=== PATIENT | male | born 1990 | race Caucasian/White ===

== ENCOUNTER → 2024-04-06 13:51 | Outpatient (CLI) | payer OTHER, SELFPAY ==
--- NOTE | 2024-04-06 13:56 | DI.ECHO.S_ITS ---
[facility] : : [address] : : [place] : : [id number] : : Phone: [phone] Echocardiogram Report + + :Name: SUMIT SHARMA Study Date: 04/06/2024 Height: 71 in : :Hospital ReadingLocation: Weight: 255 lb : : Gender: Male BSA: 2.3 m2 : :: 1990 Age: 33 yrs BP: 134/83 mmHg: :Reason For Study: PAROXYSMAL ATRIAL FIBRILLATION : :Ordering Physician: GINA, : :[place] Performed By: Eugenia Barry : :Referring: [place] CHE : + + Interpretation Summary 1) Normal left ventricular thickness, size, wall motion, and systolic function (EF 55-60%). 2) Normal right ventricular size and function. 3) No significant valvular abnormalities. 4) No prior Echo available for comparison. Procedure: A two-dimensional transthoracic echocardiogram with color flow and Doppler was performed. The study quality was technically adequate. There is no prior echocardiogram noted for this patient. The patient was in sinus rhythm with heart rates between 63-85 bpm during the exam. Left Ventricle: The left ventricle is normal in size and wall thickness. The ejection fraction is estimated to be 55-60%. Left ventricular systolic function appears normal without focal wall motion abnormalities. Diastolic parameters suggest probable normal left ventricular diastolic function and normal filling pressures. Right Ventricle: The right ventricle is grossly normal size. The right ventricular systolic function is normal. Atria: The left atrial size is normal. Right atrial size is normal. There is no Doppler evidence for an interatrial shunt. Mitral Valve: The mitral valve is normal in structure and function. There is trace mitral regurgitation. Aortic Valve: The aortic valve is trileaflet. The aortic valve opens well. There is no aortic valve stenosis. There is trace aortic regurgitation. Tricuspid Valve: The tricuspid valve is normal in structure and function. There is trace tricuspid regurgitation. Pulmonary artery pressures cannot be estimated because of the lack of a measurable TR jet velocity. Pulmonic Valve: The pulmonic valve leaflets are thin and pliable; valve motion is normal. There is trace pulmonic regurgitation. Great Vessels: The aortic root is normal size. The dimensions of the ascending aorta are normal. The IVC is of normal diameter and collapses greater than 50% with a sniff. This suggests a low right atrial pressure of 3 mm Hg. Pericardium/ Pleura There is no pericardial effusion. There is no pleural effusion. MMode/2D Measurements & Calculations LVIDd: 4.5 cm LVOT diam: 2.2 cm LVIDs: 3.0 cm Ao root diam: 2.8 cm FS: 33.3 % asc Aorta Diam: 3.0 cm IVSd: 0.85 cm Ao Arch Diam (Prox Trans): 2.7 cm LVPWd: 0.89 cm LV [place]. diameter/BSA (cm/m^2): 1.9 LV sys. diameter/BSA (cm/m^2): 1.3 LA A2 area: 20.8 cm2 RA long axis: 5.0 cm LA A4 area: 18.5 cm2 RA area: 13.6 cm2 LA length (vol): 5.1 cm RA vol: 31.5 ml LA vol: 63.6 ml RA : 13.5 ml/m2 LA vol index: 27.2 ml/m2 IVC diam: 1.6 cm RVD1 (basal): 4.3 cm TAPSE: 2.0 cm Doppler Measurements & Calculations Ao V2 max: 147.1 cm/sec LVOT Max Rom: 128.2 cm/sec Ao V2 mean: 103.5 cm/sec LV V1 max P.6 mmHg Ao max P.7 mmHg LV V1 VTI: 27.0 cm Ao mean P.7 mmHg DANIELA(I,D): 3.6 cm2 Ao V2 VTI: 28.5 cm DANIELA(V,D): 3.3 cm2 sev ratio: 0.95 DANIELA indexed to BSA (cm^2/m^2): 1.5 MV E max rom: 85.8 cm/sec PA V2 max: 182.9 cm/sec MV A max rom: 51.8 cm/sec PA V2 mean: 129.3 cm/sec MV E/A: 1.7 PA mean P.3 mmHg Med Peak E' Rom: 7.1 cm/sec PA pr(Accel): 35.3 mmHg E/E' med: 12.1 Lat Peak E' Rom: 13.4 cm/sec E/E' lat: 6.4 E/e' average: 9.3 MV dec time: 0.22 sec SV(LVOT): 102.7 ml Reading Physician:03:24 PM
--- NOTE | 2024-04-06 22:22 | DI.NM.S_ITS ---
DATE OF SERVICE: 04/06/2024 EXERCISE STRESS TEST INDICATION: History of atrial fibrillation, prediabetes, hyperlipidemia. CARDIAC STRESS: The patient underwent exercise stress test under the supervision of an attending staff. The patient walked on Ryan protocol for 9 minutes 26 seconds, achieved maximum heart rate of 158, which was 85% of target heart rate. Normal blood pressure response. Resting blood pressure 120/80 and peak blood pressure 172/90 mmHg. Achieved 10.1 METS of workload. JAIME positive 60%. Baseline rhythm was sinus. During stress, no convincing ischemic changes seen. Occasional PACs. [place] shortness of breath during exercise. CONCLUSION: Exercise stress test is negative for inducible ischemia. Diminished exercise tolerance. Normal hemodynamic response. No significant arrhythmias. Had shortness of breath during exercise. Normal recovery. Overall, low-risk exercise stress test. Fred Orr - PETAR/vaishali/COMFORT doc#: [id number]/job#: [id number] dd: 04/06/2024 17:08:00 dt: 04/06/2024 22:13:00 DICTATING /COPIES TO: Shan Jay MD COPIES MNE: HUMZA;
== END ==
PROVIDERS: Referring Provider Family Medicine; Visit Provider Family Medicine
DX: I48.0 Paroxysmal atrial fibrillation (principal)
CPT/HCPCS: 93017; 93306